=== PATIENT | male | born 1965 | race African-American/Black ===

== ENCOUNTER 2017-03-01 12:25 | Emergency (ER) | payer MEDICAID ==
[~2017-03-01] VITALS: Ht 170.2 cm; Wt 86.0 kg
[2017-03-01] MEDS ORDERED: FURO20TA4 PO (13:09)
[2017-03-01 14:00] LABS: BASOPHILS % 0.6 % (0.0-2.0); EOSINOPHILS % 1.7 % (0.0-5.0); HEMATOCRIT. 37.7 % (42.0-52.0); HEMOGLOBIN. 11.9 g/dL (14.0-18.0); LYMPHOCYTES % 23.9 % (20.0-50.0); MEAN CORPUSCULAR HEMOGLOBIN 28.8 pg (28.0-32.0); MEAN CORPUSCULAR VOLUME 91.3 fL (80.0-94.0); MONOCYTES % 7.1 % (2.0-8.0); NEUTROPHILS % 66.7 % (40.0-76.0); PLATELET 489 x1000/uL (130-400); RED BLOOD CELL COUNT 4.13 mill/uL (4.7-6.1); RED CELL DISTRIBUTION WIDTH 13.3 % (11.6-14.6)
[2017-03-01 14:02] LABS: CHLORIDE 106 mEq/L (98-107)
[2017-03-01 14:03] LABS: PROTHROMBIN TIME 10.5 sec (9.4-11.6)
[2017-03-01 14:10] LABS: CARBON DIOXIDE 29 mEq/L (21-32)
[2017-03-01] MEDS ORDERED: MORPHINE SULFATE 2 MG/ML CPJ (NOT FOR IM USE) IV ONE (16:00)
[2017-03-01 16:43] VITALS: BP 139/78
== END 2017-03-01 18:22 | disposition short-term general hospital (02) ==
LOC: ER 12:25 → CANBEDREQ 15:56 → ER 18:22
DX: S72.91XA Unspecified fracture of right femur, initial encounter for closed fracture (principal); J45.909 Unspecified asthma, uncomplicated; I10 Essential (primary) hypertension; F12.10 Cannabis abuse, uncomplicated; Z98.890 Other specified postprocedural states; W34.09XA Accidental discharge from other specified firearms, initial encounter; Y93.89 Activity, other specified; Y92.89 Other specified places as the place of occurrence of the external cause; Y99.8 Other external cause status
CPT/HCPCS: 36415; 71010; 73521; 80053; 82962; 85025; 85610; 96374; 99285; J2270; J7030